=== PATIENT | female | born 1985 | race Caucasian/White ===

== ENCOUNTER 2020-05-29 11:06 | Emergency (ER) | payer OTHER ==
[~2020-05-29] VITALS: Ht 175.3 cm; Wt 89.1 kg
[~2020-05-29 11:06] MED LIST: BENADRYL; NEXIUM PO; TRI-SPRINTEC TP
[2020-05-29 11:11] VITALS: BP 111/61; TEMP 98.8
[2020-05-29] MEDS ORDERED: FLEXERIL 1010 MG/TAB PO (12:25)
[2020-05-29] MEDS ORDERED: NORCO 325 MG-51 TAB PO (12:25)
[2020-05-29 12:50] VITALS: PULSE 105
== END 2020-05-29 12:50 | disposition home or self-care (01) ==
LOC: COL.ER 11:06
DX: S20.211A Contusion of right front wall of thorax, initial encounter (principal); J45.909 Unspecified asthma, uncomplicated; V49.9XXA Car occupant (driver) (passenger) injured in unspecified traffic accident, initial encounter
CPT/HCPCS: J1885